=== PATIENT | male | born 1985 | race Caucasian/White ===

== ENCOUNTER 2016-11-13 13:19 | Emergency (ER) | payer OTHER ==
[2016-11-13 13:28] VITALS: TEMP 98.1
[2016-11-13] MEDS ORDERED: Sodium Chloride 0.9% 1,000 ML IV STA (14:03)
[2016-11-13 14:24] LABS: BASO # 0.03 K/mm3 (0.0-2.0); BASO % 0.4 % (0.0-3.0); EOS # 0.1 (0.0-0.7); EOS % 1.5 % (1.5-5.0); GRAN # 4.46 (1.4-6.5); GRAN % 61.4 % (50.0-68.0); HEMATOCRIT 40.3 % (42.0-52.0); LYMPH # 2.3 (1.2-3.4); MEAN CELL VOLUME 86.3 fl (80.0-105.0); MEAN CORPUSCULAR HEMOGLOBIN 28.5 pg (25.0-35.0); MEAN PLATELET VOLUME 10.4 fl (7.0-11.0); MONO # 0.3 (0.1-0.6); MONO % 4.7 % (1.0-6.0); RED CELL DISTRIBUTION WIDTH 14.4 % (11.5-14.5); URINE BILIRUBIN NEGATIVE (NEGATIVE); URINE BLOOD MODERATE (NEGATIVE); URINE GLUCOSE (UA) NEGATIVE (NEGATIVE); URINE KETONE TRACE mg/dL (NEGATIVE); URINE LEUKOCYTE ESTERASE TRACE Leu/uL (NEGATIVE); URINE PROTEIN NEGATIVE mg/dL (<30 mg/dL); URINE UROBILINOGEN 0.2 E.U./dL (<1 E.U./dL); WHITE BLOOD COUNT 7.3 10^3/ul (4.5-11.0)
[2016-11-13 14:25] LABS: URINE APPEARANCE CLEAR (CLEAR); URINE COLOR YELLOW (YELLOW)
[2016-11-13 14:36] LABS: ALB/GLOB RATIO 1.3 (1.1-1.8); ALKALINE PHOSPHATASE 55 U/L (38-133); ALT/SGPT 47 U/L (7-56); AST/SGOT 36 U/L (15-59); BILIRUBIN,TOTAL 0.4 mg/dL (0.2-1.3); BLOOD UREA NITROGEN 10 mg/dL (7-21); CALCIUM 9.4 mg/dL (8.4-10.5); CARBON DIOXIDE 30 mmol/L (21-33); CHLORIDE 101 mmol/L (98-107); GFR AFRICAN-AMERICAN > 60; GLUCOSE,RANDOM 98 mg/dL (70-110); LIPASE 97 U/L (23-300); POTASSIUM 3.8 mmol/L (3.6-5.0); SODIUM 140 mmol/L (132-148); TOTAL PROTEIN 7.7 g/dL (5.8-8.3)
[2016-11-13 14:38] LABS: URINE BACTERIA FEW (NEG); URINE EPITHELIAL CELLS 0 - 2 /hpf (0-5)
--- NOTE | 2016-11-13 14:43 | ED PDOC ---
Arrival/HPI - General Chief Complaint: Abdominal Pain Time Seen by Provider: 11/13/16 13:47 Historian: Patient - History of Present Illness Narrative History of Present Illness (Text): 11/13/16 14:51 A 31 year old male presents to the emergency department complaining of right flank pain. Patient describes the pain as sharp, dull and intermittent that developed yesterday, radiating to the R hip. Notes pain is worse anytime he moves, eats at night, and when urinating. Reports taking Motrin with relief of pain. Notes pain associated with nausea but denies any vomiting, anorexia, fever , diarrhea, urinary symptoms or any other complaints at this time. Denies any history of kidney stones, gallstones or abdominal surgeries. PMD: None Time/Duration: 24 hours Symptom Onset: Sudden Symptom Course: Unchanged Activities at Onset: Rest Context: Home Past Medical History - Provider Review Nursing Documentation Reviewed: Yes - Infectious Disease Hx of Infectious Diseases: None - Psychiatric Hx Substance Use: No - Surgical History Other/Comment: unknown suregery as a child. - Anesthesia Hx Anesthesia: Yes Hx Anesthesia Reactions: No Family/Social History - Physician Review Nursing Documentation Reviewed: Yes Family/Social History: No Known Family HX Smoking Status: Never Smoked Hx Alcohol Use: Yes Frequency of alcohol use: Socially Hx Substance Use: No Allergies/Home Meds Allergies/Adverse Reactions: Allergies banana Allergy (Verified 11/13/16 13:23) NAUSEA Review of Systems - Physician Review All systems were reviewed & negative as marked: Yes - Review of Systems Constitutional: absent: Fevers Gastrointestinal: Abdominal Pain (right flank pain), Nausea. absent: Diarrhea, Vomiting Genitourinary Male: absent: Frequency, Hematuria Physical Exam Vital Signs Reviewed: Yes Vital Signs Temp Pulse Resp BP Pulse Ox 11/13/16 15:24 98 H 20 136/86 99 11/13/16 13:26 98.1 F 106 H 18 149/92 H 96 Temperature: Afebrile Blood Pressure: Hypertensive Pulse: Tachycardic Respiratory Rate: Normal Appearance: Positive for: Well-Appearing, Non-Toxic, Comfortable Pain Distress: None Mental Status: Positive for: Alert and Oriented X 3 - Systems Exam Head: Present: Atraumatic, Normocephalic Pupils: Present: PERRL Extroacular Muscles: Present: EOMI Conjunctiva: Present: Normal Mouth: Present: Moist Mucous Membranes Neck: Present: Normal Range of Motion Respiratory/Chest: Present: Clear to Auscultation, Good Air Exchange. No: Respiratory Distress, Accessory Muscle Use Cardiovascular: Present: Regular Rate and Rhythm, Normal S1, S2. No: Murmurs Abdomen: Present: Tenderness (right flank), Normal Bowel Sounds, Other ( negative long's sign). No: Distention, Peritoneal Signs, Rebound, Guarding, McBurney's Point Tender, Mass/Organomegaly, Scars Back: Present: Normal Inspection. No: CVA Tenderness, Midline Tenderness, Paraspinal Tenderness Upper Extremity: Present: Normal Inspection. No: Cyanosis, Edema Lower Extremity: Present: Normal Inspection. No: Edema Neurological: Present: GCS=15, CN II-XII Intact, Speech Normal Skin: Present: Warm, Dry, Normal Color. No: Rashes Psychiatric: Present: Alert, Oriented x 3, Normal Insight, Normal Concentration Medical Decision Making ED Course and Treatment: 11/13/16 14:40 Impression: A 31 year old male with right flank pain x 2 days. Differential diagnosis : billiary colic, acute cholecystitis, renal colic Plan: -- US abdomen -- labs -- Urinalysis -- Toradol, Zofran, Pepcid, IV fluids -- Reassess and disposition Progress Notes: 11/13/16 14:53 US abdomen- Creator : DR. CALLES, PALMIRA MARTÍNEZ FINDINGS: LIVER: Measures 20.0 cm. Diffusely increased echogenicity of the liver parenchyma. Consistent with fatty infiltration. No mass. No biliary ductal dilatation. Smooth contour. Normal hepatopetal portal venous flow is demonstrated. GALLBLADDER: Unremarkable. No gallstones. COMMON BILE DUCT: Measures 3 mm. No stones. No dilatation. PANCREAS: Unremarkable as visualized. No mass. No ductal dilatation. RIGHT KIDNEY: Measures 12.3cm. Normal echogenicity. No calculus, mass, or hydronephrosis. LEFT KIDNEY: Measures 11.7cm. Normal echogenicity. No calculus, mass, or hydronephrosis. SPLEEN: Normal in size and contour. No mass. AORTA: No aneurysmal dilatation. IVC: Unremarkable. IMPRESSION: Mild hepatomegaly with diffuse fatty infiltration of the liver. Otherwise unremarkable examination 11/13/16 16:19 Labs reviewed : CBC, CMP is wnl, UA shows +blood, +trace leuks, wbc 1-3. On re-evaluation, pt reports improvement of pain. On exam, pt is laying in bed comfortably in no acute distress. Abdomen remains soft with no tenderness, no rebound or guarding. No McBurney's point tenderness, negative long's. No CVA tenderness. Diagnostic results d/w the pt in great detail. Cirpo IV ordered. Pt notified of diagnosis of flank pain with possible renal colic and UTI. Advised of the importance for the pt to follow up with urology referral provided in 1-2 days without fail. Advised to take medication as prescribed. Return to the emergency room at any time for any new or worsening symptoms. Patient states he fully agrees with and understands discharge instructions. States that he agrees with the plan and disposition. Verbalized and repeated discharge instructions and plan. I have given the patient opportunity to ask any additional questions. - Lab Interpretations Lab Results: 11/13/16 14:15 11/13/16 14:15 Lab Results 11/13/16 14:15: Sodium 140, Potassium 3.8, Chloride 101, Carbon Dioxide 30, Anion Gap 13, BUN 10, Creatinine 0.8, Est GFR ( Amer) > 60, Est GFR (Non- Af Amer) > 60, Random Glucose 98, Calcium 9.4, Total Bilirubin 0.4, AST 36, ALT 47, Alkaline Phosphatase 55, Total Protein 7.7, Albumin 4.4, Globulin 3.3, Albumin/Globulin Ratio 1.3, Lipase 97 11/13/16 14:15: Urine Color Yellow, Urine Appearance Clear, Urine pH 6.0, Ur Specific [place] 1.025, Urine Protein Negative, Urine Glucose (UA) Negative, Urine Ketones Trace H, Urine Blood Moderate H, Urine Nitrate Negative, Urine Bilirubin Negative, Urine Urobilinogen 0.2, Ur Leukocyte Esterase Trace H, Urine RBC 5 - 10, Urine WBC 1 - 3, Ur Epithelial Cells 0 - 2, Urine Bacteria Few 11/13/16 14:15: WBC 7.3, RBC 4.67, Hgb 13.3 L, Hct 40.3 L, MCV 86.3, MCH 28.5, MCHC 33.0, RDW 14.4, Plt Count 268, MPV 10.4, Gran % 61.4, Lymph % (Auto) 32.0, [place] % (Auto) 4.7, Eos % (Auto) 1.5, Baso % (Auto) 0.4, Gran # 4.46, Lymph # 2.3 , [place] # 0.3, Eos # 0.1, Baso # 0.03 I have reviewed the lab results: Yes - RAD Interpretation Radiology Orders: 11/13/16 14:03 ABDOMEN COMPLETE [US] Stat - Medication Orders Current Medication Orders: Ciprofloxacin (Cipro 400mg/200ml Dsw) 400 mg in 200 mls @ 133.3 mls/hr IVPB STAT STA PRN Reason: Protocol Stop: 11/13/16 17:18 Last Admin: 11/13/16 16:29 Dose: 133.3 mls/hr Discontinued Medications Famotidine (Pepcid) 20 mg IVP STAT STA Stop: 11/13/16 14:04 Last Admin: 11/13/16 14:45 Dose: 20 mg Sodium Chloride (Sodium Chloride 0.9%) 1,000 mls @ 1,000 mls/hr IV .Q1H STA Stop: 11/13/16 15:02 Last Admin: 11/13/16 14:46 Dose: 1,000 mls/hr Ketorolac Tromethamine (Toradol) 30 mg IVP STAT STA Stop: 11/13/16 14:04 Last Admin: 11/13/16 14:45 Dose: 30 mg Ondansetron HCl (Zofran Inj) 4 mg IVP STAT STA Stop: 11/13/16 14:04 Last Admin: 11/13/16 14:46 Dose: 4 mg - PA / [employer] / Resident Statement MD/DO has reviewed & agrees with the documentation as recorded. - Scribe Statement The provider has reviewed the documentation as recorded by the Andrew Burnett Provider Scribe Attestation: All medical record entries made by the Andrew were at my direction and personally dictated by me. I have reviewed the chart and agree that the record accurately reflects my personal performance of the history, physical exam, medical decision making, and the department course for this patient. I have also personally directed, reviewed, and agree with the discharge instructions and disposition. Disposition/Present on Arrival - Present on Arrival Any Indicators Present on Arrival: No History of DVT/PE: No History of Uncontrolled Diabetes: No Urinary Catheter: No History of Decub. Ulcer: No History Surgical Site Infection Following: None - Disposition Have Diagnosis and Disposition been Completed?: Yes Diagnosis: Flank pain, UTI (urinary tract infection) Disposition: HOME/ ROUTINE Disposition Time: 16:00 Patient Plan: Discharge Patient Problems: Current Active Problems Problem Status Onset Flank pain Acute UTI (urinary tract infection) Acute Condition: IMPROVED Discharge Instructions (ExitCare): Urinary Tract Infection in Men (ED), Renal Colic (ED), Flank Pain (ED) Print Language: MACEDONIAN Additional Instructions: Thank you for letting us take care of you today. You were treated for flank pain , likely renal colic, UTI. The emergency medical care you received today was directed at your acute symptoms. If you were prescribed any medication, please fill it and take as directed. It may take several days for your symptoms to resolve. Return to the Emergency Department if your symptoms worsen, do not improve, or if you have any other problems. Please contact your doctor in 2 days for re-evaluation and follow up / or call one of the physicians/clinics you have been referred to that are listed on the Patient Visit Information form that is included in your discharge packet. Bring any paperwork you were given at discharge with you along with any medications you are taking to your follow up visit. Our treatment cannot replace ongoing medical care by a primary care provider (PCP) outside of the emergency department. Thank you for allowing the [facility] team to be part of your care today. Prescriptions: Ciprofloxacin HCl [Cipro] 500 mg PO BID #14 tablet Naproxen 500 mg PO BID #30 tab Tamsulosin [Flomax] 0.4 mg PO DAILY #10 cap Referrals: Doug Torrez, [Primary Care Provider] - Follow up with primary Eris Mercado MD [Staff Provider] - Follow up with primary Forms: [employer] (Bhutanese), WORK NOTE
--- NOTE | 2016-11-13 14:51 | US ---
HISTORY: R flank pain COMPARISON: None. TECHNIQUE: Sonographic evaluation of the abdomen. FINDINGS: LIVER: Measures 20.0 cm. Diffusely increased echogenicity of the liver parenchyma. Consistent with fatty infiltration. No mass. No biliary ductal dilatation. Smooth contour. Normal hepatopetal portal venous flow is demonstrated. GALLBLADDER: Unremarkable. No gallstones. COMMON BILE DUCT: Measures 3 mm. No stones. No dilatation. PANCREAS: Unremarkable as visualized. No mass. No ductal dilatation. RIGHT KIDNEY: Measures 12.3cm. Normal echogenicity. No calculus, mass, or hydronephrosis. LEFT KIDNEY: Measures 11.7cm. Normal echogenicity. No calculus, mass, or hydronephrosis. SPLEEN: Normal in size and contour. No mass. AORTA: No aneurysmal dilatation. IVC: Unremarkable. OTHER FINDINGS: None. IMPRESSION: Mild hepatomegaly with diffuse fatty infiltration of the liver. Otherwise unremarkable examination
[2016-11-13 15:24] VITALS: O2SAT 99
[2016-11-13] MEDS ORDERED: Ciprofloxacin 400mg/200ml D5W 400 MG/200 ML BAG IVPB STA (15:48)
[2016-11-13 17:27] VITALS: BP 134/79; PULSE 89; RESP 18
== END 2016-11-13 18:10 | disposition home or self-care (01) ==
LOC: ED 13:19
DX: N39.0 Urinary tract infection, site not specified (principal); R10.9 Unspecified abdominal pain
CPT/HCPCS: 76700; 80053; 81001; 83690; 85025; 87086; 96365; 96375; 99284; J0744; J1885; J2405; J7040

== ENCOUNTER 2017-08-19 20:58 | Emergency (ER) | payer OTHER ==
[2017-08-19] MEDS ORDERED: Albuterol-Ipratrop 3 mg / 0.5 (3 ml) UD IH STA (21:10)
--- NOTE | 2017-08-19 21:47 | ED PDOC ---
Arrival/HPI - General Chief Complaint: Shortness Of Breath Time Seen by Provider: 08/19/17 21:07 Historian: Patient - History of Present Illness Narrative History of Present Illness (Text): 08/20/17 05:59 Patient is a 32 M with no significant past medical history who presents with complaints of throat swelling and shortness of breath which has begun two days ago and progressively worsened. Patient admits to consuming vegetarian bugers made of soy these past two days. Significant other of patient endorses patient was told in the past two avoid soy products. Patient denies dizziness, chest pain, palpitations, fevers, chills, nausea, vomiting, diarrhea. Time/Duration: > week, < week Symptom Onset: Gradual Symptom Course: Worsening Quality: Tightness, Burning, Fullness Context: Home Past Medical History - Provider Review Nursing Documentation Reviewed: Yes - Infectious Disease Hx of Infectious Diseases: None - Cardiac Hx Cardiac Disorders: No - Pulmonary Hx Respiratory Disorders: Yes Hx Bronchitis: Yes - Neurological Hx Neurological Disorder: No - HEENT Hx HEENT Disorder: No - Renal Hx Renal Disorder: No - Endocrine/Metabolic Hx Endocrine Disorders: No - Hematological/Oncological Hx Blood Disorders: No - Integumentary Hx Dermatological Disorder: No - Musculoskeletal/Rheumatological Hx Musculoskeletal Disorders: No - Gastrointestinal Hx Gastrointestinal Disorders: No - Genitourinary/Gynecological Hx Genitourinary Disorders: No - Psychiatric Hx Psychophysiologic Disorder: No Hx Substance Use: No - Surgical History Other/Comment: unknown suregery as a child. - Anesthesia Hx Anesthesia: Yes Hx Anesthesia Reactions: No Family/Social History - Physician Review Nursing Documentation Reviewed: Yes Family/Social History: No Known Family HX Smoking Status: Never Smoked Hx Alcohol Use: Yes Hx Substance Use: No Allergies/Home Meds Allergies/Adverse Reactions: Allergies banana Allergy (Verified 08/19/17 21:03) NAUSEA Home Medications: Home Meds Medication Instructions Recorded Confirmed No Known Home Med 08/19/17 08/19/17 Review of Systems - Physician Review All systems were reviewed & negative as marked: Yes - Review of Systems Constitutional: Normal Eyes: Normal ENT: Normal Respiratory: SOB, Cough. absent: Sputum, Wheezing Cardiovascular: absent: Chest Pain, Palpitations Gastrointestinal: absent: Abdominal Pain, Nausea, Vomiting Genitourinary Male: absent: Dysuria Neurological: absent: Headache, Dizziness Psychiatric: absent: Anxiety Physical Exam Vital Signs Reviewed: Yes Vital Signs Temp Pulse Resp BP Pulse Ox 08/19/17 22:51 98.2 F 89 18 149/57 L 100 08/19/17 22:15 20 98 08/19/17 21:04 99.0 F 108 H 23 109/83 97 Temperature: Afebrile Blood Pressure: Normal Pulse: Regular Respiratory Rate: Normal Appearance: Positive for: Well-Appearing, Non-Toxic, Comfortable Pain Distress: None Mental Status: Positive for: Alert and Oriented X 3 - Systems Exam Head: Present: Atraumatic, Normocephalic Pupils: Present: PERRL Extroacular Muscles: Present: EOMI Conjunctiva: Present: Normal Mouth: Present: Moist Mucous Membranes Neck: Present: Normal Range of Motion Respiratory/Chest: Present: Clear to Auscultation. No: Wheezes, Rhonchi Cardiovascular: Present: Regular Rate and Rhythm, Normal S1, S2 Abdomen: No: Tenderness Upper Extremity: Present: Normal Inspection Lower Extremity: Present: Normal Inspection Neurological: Present: GCS=15, CN II-XII Intact, Speech Normal Skin: Present: Warm, Normal Color Psychiatric: Present: Alert, Oriented x 3, Normal Insight, Normal Concentration Medical Decision Making ED Course and Treatment: 08/20/17 00:29 Duonebs, Solumedrol, Benadryl Differential included allergic reaction to soy products vs retropharyngeal abscess vs peritonsillar abscess Patient decided to Leave Against Medical Advice (AMA): The patient is choosing to leave against medical advice. I have personally explained to the patient that choosing to do so may result in permanent bodily harm or . I have discussed at great length that without further evaluation and monitoring there may be unforeseen circumstances and/or deterioration causing permanent bodily harm or as a result of their choice. The patient is alert, oriented, and shows the mental capacity to make clear decisions regarding the patients health care at this time. The patient continues to wish to leave against medical advice. In light of the patients decision to leave against medical advice, follow-up has been arranged and the patient is aware of the importance to following up as instructed. The patient has been advised that they should return to the emergency room immediately if they change their mind at any time, or if their condition begins to change or worsen in any way. - Lab Interpretations Lab Results: 08/19/17 21:28 08/19/17 22:27 Lab Results 08/19/17 22:27: Sodium 141, Potassium 4.0, Chloride 102, Carbon Dioxide 27, Anion Gap 16, BUN 19, Creatinine 0.7 L, Est GFR ( Amer) > 60, Est GFR ( Non-Af Amer) > 60, Random Glucose 101, Calcium 9.0, Total Bilirubin 0.2, AST 23 , ALT 32, Alkaline Phosphatase 50, Total Protein 7.7, Albumin 4.3, Globulin 3.3 , Albumin/Globulin Ratio 1.3 08/19/17 21:28: WBC 12.1 H D, RBC 4.61, Hgb 13.2 L, Hct 39.7 L, MCV 86.1, MCH 28.6, MCHC 33.2, RDW 14.4, Plt Count 298, MPV 10.5, Gran % 63.7, Lymph % (Auto) 30.5, [place] % (Auto) 4.1, Eos % (Auto) 1.5, Baso % (Auto) 0.2, Gran # 7.69 H, Lymph # (Auto) 3.7 H, [place] # (Auto) 0.5, Eos # (Auto) 0.2, Baso # (Auto) 0.03 I have reviewed the lab results: Yes Interpretation: Abnormal lab values (elevated white count >12) - RAD Interpretation Radiology Orders: 08/19/17 21:25 CHEST PORTABLE [RAD] Stat - Medication Orders Current Medication Orders: Discontinued Medications Albuterol/Ipratropium (Duoneb 3 Mg/0.5 Mg (3 Ml) Ud) 3 ml IH STAT STA Stop: 08/19/17 21:11 Last Admin: 08/19/17 21:42 Dose: 3 ml Diphenhydramine HCl (Benadryl) 50 mg IVP STAT STA Stop: 08/19/17 21:56 Last Admin: 08/19/17 21:59 Dose: 50 mg IVP Administration Document 08/19/17 21:59 IT (Rec: 08/19/17 21:59 IT [id number]) Charges for Administration # of IVP Administrations 1 Famotidine (Pepcid) 20 mg IVP STAT STA Stop: 08/19/17 21:11 Last Admin: 08/19/17 21:43 Dose: 20 mg IVP Administration Document 08/19/17 21:43 IT (Rec: 08/19/17 21:43 IT [id number]) Charges for Administration # of IVP Administrations 1 Methylprednisolone (Solu-Medrol) 125 mg IVP STAT STA Stop: 08/19/17 21:11 Last Admin: 08/19/17 21:43 Dose: 125 mg IVP Administration Document 08/19/17 21:43 IT (Rec: 08/19/17 21:43 IT [id number]) Charges for Administration # of IVP Administrations 1 Disposition/Present on Arrival - Present on Arrival Any Indicators Present on Arrival: No History of DVT/PE: No History of Uncontrolled Diabetes: No Urinary Catheter: No History of Decub. Ulcer: No History Surgical Site Infection Following: None - Disposition Have Diagnosis and Disposition been Completed?: No Diagnosis: Allergic reaction Disposition: AGAINST MEDICAL ADVICE Disposition Time: 20:30 Condition: GUARDED Referrals: PCP,NO [Primary Care Provider] - Follow up with primary Forms: [facility] (Faroese)
[2017-08-19] MEDS ORDERED: DiphenhydrAMINE 50 mg/ml Inj IVP STA ×2 (21:49→21:55)
[2017-08-19 22:10] LABS: BASO # 0.03 K/mm3 (0.0-2.0); BASO % 0.2 % (0.0-3.0); EOS # 0.2 (0.0-0.7); EOS % 1.5 % (1.5-5.0); GRAN # 7.69 (1.4-6.5); GRAN % 63.7 % (50.0-68.0); HEMOGLOBIN 13.2 g/dL (14.0-18.0); LYMPH # 3.7 (1.2-3.4); LYMPH % 30.5 % (22.0-35.0); MEAN CELL VOLUME 86.1 fl (80.0-105.0); MEAN CORPUSCULAR HEMOGLOBIN 28.6 pg (25.0-35.0); MEAN CORPUSCULAR HGB CONC 33.2 g/dl (31.0-37.0); MEAN PLATELET VOLUME 10.5 fl (7.0-11.0); MONO # 0.5 (0.1-0.6); MONO % 4.1 % (1.0-6.0); RBC 4.61 10^6/uL (3.5-6.1); RED CELL DISTRIBUTION WIDTH 14.4 % (11.5-14.5); WHITE BLOOD COUNT 12.1 10^3/ul (4.5-11.0)
[2017-08-19 22:48] LABS: ALB/GLOB RATIO 1.3 (1.1-1.8); ALBUMIN 4.3 g/dL (3.0-4.8); ALT/SGPT 32 U/L (7-56); AST/SGOT 23 U/L (17-59); BLOOD UREA NITROGEN 19 mg/dL (7-21); GFR AFRICAN-AMERICAN > 60; GFR NON-AFRICAN AMERICAN > 60
[2017-08-19 23:41] VITALS: BP 149/57; PULSE 89; RESP 18; TEMP 98.2; O2SAT 100
--- NOTE | 2017-08-20 08:30 | RAD ---
HISTORY: worsening bronchitis COMPARISON: No prior. FINDINGS: LUNGS: No active pulmonary disease. PLEURA: No significant pleural effusion identified, no pneumothorax apparent. CARDIOVASCULAR: Normal. OSSEOUS STRUCTURES: No significant abnormalities. VISUALIZED UPPER ABDOMEN: Normal. OTHER FINDINGS: None. IMPRESSION: No active disease.
== END 2017-08-19 22:51 | disposition left against medical advice (07) ==
LOC: ED 20:58
DX: T78.40XA Allergy, unspecified, initial encounter (principal); X58.XXXA Exposure to other specified factors, initial encounter
CPT/HCPCS: 71045; 80053; 85025; 96374; 96375; 99284; J1200; J2930